=== PATIENT | female | born 1960 | race Two or more races ===

== ENCOUNTER → 2016-09-10 | Outpatient (CLI) | payer BC ==
--- NOTE | 2016-09-10 12:06 | RAD ---
Chest, 2 views, 09/10/2016: History: Right periscapular pain No previous chest radiographs are available at this time for comparison purposes. There is a density in the posterior aspect of the left chest suggesting focal diaphragmatic eventration. The heart size and pulmonary vascularity are normal. No pulmonary infiltrates are seen. No definite pleural fluid is seen. IMPRESSION: 1. Partial eventration of the left hemidiaphragm. 2. No acute cardiopulmonary abnormality is detected.
== END | disposition home or self-care (01) ==
LOC: DXRADRC 08:17
PROVIDERS: ATTEND Physician Assistant Medical
DX: N64.4 Mastodynia (principal); Q79.1 Other congenital malformations of diaphragm
CPT/HCPCS: 71020

== ENCOUNTER → 2016-12-22 | Outpatient (CLI) | payer BC ==
--- NOTE | 2016-12-22 09:57 | RAD ---
Examination: 2 views of the chest History: History of chest congestion Comparison: 09/10/2016 Findings: The cardiomediastinal silhouette grossly appears unremarkable. Minimal prominent appearing bilateral interstitial lung markings could be chronic interstitial changes or minimal interstitial infiltrates. Mild elevation of left hemidiaphragm unchanged. Moderate degenerative changes thoracic spine. Impression: Minimal prominent appearing bilateral perihilar bronchovascular markings could be chronic interstitial changes or minimal interstitial infiltrates.
== END | disposition home or self-care (01) ==
LOC: DXRADRC 08:20
PROVIDERS: ATTEND Physician Assistant Medical
DX: R09.89 Other specified symptoms and signs involving the circulatory and respiratory systems (principal); R50.9 Fever, unspecified; J98.6 Disorders of diaphragm; M47.894 Other spondylosis, thoracic region
CPT/HCPCS: 71020

== ENCOUNTER → 2017-01-02 | Outpatient (CLI) | payer BC ==
--- NOTE | 2017-01-02 16:26 | RAD ---
CHEST PA LATERAL Clinical Indication: CHEST CONGESTION W NON PROD COUGH X 2 WKS Comparison: Chest radiograph dated 12/22/2016. Findings: Unchanged eventration of the left hemidiaphragm. No focal consolidation. Normal pulmonary vasculature. No pleural effusion or pneumothorax. The cardiomediastinal silhouette and great vessels are stable. No acute osseous abnormality. Mild multilevel degenerative changes of the visualized spine. IMPRESSION: No acute cardiopulmonary process.
== END | disposition home or self-care (01) ==
LOC: DXRADRC 14:00
PROVIDERS: ATTEND Physician Assistant Medical
DX: R09.89 Other specified symptoms and signs involving the circulatory and respiratory systems (principal); R05 Cough; Q79.1 Other congenital malformations of diaphragm; M47.899 Other spondylosis, site unspecified
CPT/HCPCS: 71020

== ENCOUNTER → 2020-01-20 | Outpatient (CLI) | payer BC ==
--- NOTE | 2020-01-23 17:09 | RAD ---
BILATERAL SCREENING MAMMOGRAM, 3-D History: Routine screening. Comparison: 01/21/2019, 01/21/2018, 01/09/2017. Technique: MLO and CC digital tomosynthesis (3D) images obtained. Radiologist reviewed these images on dedicated workstation. Findings: Breast Tissue Density A : The breasts are almost entirely fatty. There are no dominant masses, suspicious microcalcifications, or architectural distortion. Biopsy clip marker involves the left breast. IMPRESSION: No mammographic evidence of malignancy. Recommend routine screening. BI-RADS category 1: Negative. The images were reviewed with computer-aided detection. Patient information is entered into reminder system with a target due date for the next screening mammogram. Mammography is the most sensitive method for finding small breast cancers, but it does not detect them all and is not a substitute for careful clinical examination. A negative mammogram does not negate a clinically suspicious finding and should not result in delay in biopsying a clinically suspicious abnormality. "Our facility is accredited by the [employer] Mammography Program." Electronically signed by: Omari Aarna MD (01/23/2020 5:06 PM) [email or web address]
== END ==
LOC: MAMMO 13:02
PROVIDERS: ATTEND Physician Assistant Medical
DX: Z12.31 Encounter for screening mammogram for malignant neoplasm of breast (principal)
CPT/HCPCS: 77063; 77067

== ENCOUNTER → 2020-04-30 | Outpatient (CLI) | payer BC ==
[~2020-04-30] MED LIST: IOHEXOL 240 MG/ML 50ML VIAL. PO ONE; IOHEXOL 300 MG/ML 75 ML VIAL. IV ONE
--- NOTE | 2020-04-30 12:57 | RAD ---
EXAM: CT Abdomen and Pelvis with IV contrast CLINICAL HISTORY: Reason: PAIN IN UPPER ABDOMEN / Spl. Instructions: / History: . COMPARISON: none TECHNIQUE: Helical CT of the abdomen and pelvis was performed following the administration of intrave nous contrast. Axial, coronal and sagittal reformatted images were generated. PQRS compliance statement - One or more of the following individualized dose reduction techniques wer e utilized for this study: 1. Automated exposure control 2. Adjustment of the mA and/or kV according to patient size 3. Use of iterative reconstruction technique FINDINGS: Lower Chest: Lung bases are clear. Moderate hiatal hernia. Abdomen and Pelvis: Hepatic hypoattenuation, likely fatty liver. Liver measures 18.4 cm in length. Calcified gallstones a re seen within the gallbladder. Pancreas, spleen, adrenal glands are unremarkable. 1.5 cm right adren al nodule is seen, indeterminate measuring 50 Hounsfield units. Multiple parapelvic cysts are seen within the left kidney. No focal renal lesion. No hydronephrosis. No hydroureter. Appendix is not seen. No significant pericecal inflammatory change. Moderate colonic stool content is seen. No bowel obstruction. Is seen. No abdominal or pelvic ascites. No abdominal or pelvic lymphade nopathy. Bones: No aggressive osseous lesion is seen. L4-5 and L5-S1 disc height loss IMPRESSION: 1. Hepatic hypoattenuation, likely fatty liver. Liver is mildly enlarged. 2. Cholelithiasis without CT evidence for acute cholecystitis. 3. Moderate hiatal hernia. 4. Appendix is not seen. No significant pericecal inflammatory change. 5. Numerous parapelvic cysts are seen within the left kidney. No hydronephrosis or hydroureter. Electronically signed by: Junior Wiley MD (04/30/2020 12:54 PM) [id number]
== END ==
LOC: URGCARE 08:06
PROVIDERS: ATTEND Nurse Practitioner Family
DX: K80.20 Calculus of gallbladder without cholecystitis without obstruction (principal); K44.9 Diaphragmatic hernia without obstruction or gangrene; N28.1 Cyst of kidney, acquired
CPT/HCPCS: 74177; Q9967

== ENCOUNTER → 2021-01-28 | Outpatient (CLI) | payer BC ==
--- NOTE | 2021-01-28 09:40 | RAD ---
INDICATION : Routine Screening. COMPARISON: Priors including December 2018 TECHNIQUE: Standard mammogram screening views of the bilateral breasts were obtained with 3D tomosynt hesis. CAD was utilized. FINDINGS: The breasts are fatty density. No definite suspicious mass. IMPRESSION: BI-RADS Category 2: Benign findings. The patient was placed into the recall system with a suggested recall date for follow up imaging. Mammography is the most sensitive method for finding small breast cancers, but it does not detect the m all and is not a substitute for careful clinical examination. A negative mammogram does not negate a clinically suspicious finding and should not result in delay in biopsying a clinically suspicious abnormality. Electronically signed by: Sree Devries MD (01/28/2021 9:37 AM) [id number]
== END ==
LOC: MAMMO 07:43
PROVIDERS: ATTEND Physician Assistant Medical
DX: Z12.31 Encounter for screening mammogram for malignant neoplasm of breast (principal)
CPT/HCPCS: 77063; 77067

== ENCOUNTER → 2021-02-20 | Outpatient (CLI) | payer BC ==
--- NOTE | 2021-02-20 09:51 | RAD ---
EXAM: Abdomen, 2 views. HISTORY: Pain. COMPARISON: CT dated 04/30/2020. FINDINGS: Frontal upright and supine views of the abdomen are obtained. There are nondistended air-fi lled loops of bowel within the abdomen. There is no transition point to suggest obstruction. There is a small amount of gas within the rectum. There is no free air. There are cholecystectomy clips. IMPRESSION: Nonobstructive bowel gas pattern. Electronically signed by: Yenni Pate MD (02/20/2021 9:48 AM) [id number]
== END ==
LOC: RAD 09:30
PROVIDERS: ATTEND Physician Assistant Medical
DX: R10.11 Right upper quadrant pain (principal); Z90.49 Acquired absence of other specified parts of digestive tract
CPT/HCPCS: 74019

== ENCOUNTER → 2021-03-01 | Outpatient (CLI) | payer BC ==
--- NOTE | 2021-03-01 14:13 | RAD ---
EXAM: ULTRASOUND ABDOMEN COMPLETE CLINICAL HISTORY: Reason: RUQ PAIN / Spl. Instructions: / History: COMPARISON: None available. TECHNIQUE: Ultrasound of the upper abdomen was performed. FINDINGS: Pancreas is obscured by overlying bowel gas. The liver measures 17.1 cm in length in the right mid cl avicular line. Increased hepatic echogenicity relative to the right kidney consistent with hepatic s teatosis. There are no focal liver lesions. Flow seen within the portal veins. There has been a cholecystectomy. The common bile duct measures 0.6 cm. The spleen is not visualized, possibly obscured by overlying structures. The right kidney measures 10.3 cm in bipolar length. Normal renal cortical echotexture and thickness. No focal renal lesion, hydronephrosis or shadowing renal calculus. The left kidney measures 11.1 cm in bipolar length. The left kidney is essentially obscured by overly ing structures Visualized portions of the abdominal aorta and inferior vena cava are unremarkable although the predo minantly obscured by overlying bowel gas.. There is no free fluid in the upper abdomen. IMPRESSION: 1. Examination is limited by prominent overlying structures and limited sonographic penetration. 2. Increased echogenicity of the liver, fatty liver. 3. There has been a cholecystectomy. Electronically signed by: Junior Wiley MD (03/01/2021 2:10 PM) [email or web address]
== END ==
LOC: US 08:17
PROVIDERS: ATTEND Physician Assistant Medical
DX: K76.0 Fatty (change of) liver, not elsewhere classified (principal); R10.11 Right upper quadrant pain
CPT/HCPCS: 76700

== ENCOUNTER → 2021-07-09 | Outpatient (CLI) | payer BC ==
--- NOTE | 2021-07-09 10:38 | RAD ---
INDICATION: Reason: ABDOMINAL PAIN, CHOLECYSTECOMY LAST YEAR. OMNI 300 75 MG / Spl. Instructions: / History: COMPARISON: April 2020 and February 2021 TECHNIQUE: Axial CT images were obtained through the abdomen and pelvis with intravenous contrast. One or more of the following individualized dose reduction techniques were utilized for this examinat ion: 1. Automated exposure control; 2. Adjustment of the mA and/or kV according to patient size; 3 . Use of iterative reconstruction technique. FINDINGS: There is again moderate hiatal hernia. There is prominent fat at the left chest base as well as eleva tion of the left hemidiaphragm with left-sided diaphragmatic defect which may be the source of the pr ominent fat in the area. Vascular: Scattered calcific atherosclerosis. Small fat-containing inguinal hernias. Hepatobiliary: Postcholecystectomy changes. Liver is borderline low density. Nonspecific but can be f rom mild fatty infiltration. Pancreas: No peripancreatic edema. Spleen: Lobulated appearance of the spleen. Renal/Bladder: Repeat demonstration of dilatation of the left renal collecting system versus peripelv ic cyst formation. There are some low-density regions within the left kidney which could be either se condary to prominent low density within the mid to lower low density lesions which are not well guru cterized on this exam. Urinary bladder has minimal urine within it at time of exam. Right adrenal nod ule is again seen measuring approximately 15 mm. An indeterminate appearance. Gastrointestinal: Dominant follicle or small cyst right ovary is again seen. There is mild heterogene ity of the myometrium which causes such as fibroid within the differential. Colonic diverticulosis. M oderate stool within the colon. No periappendiceal inflammatory changes. No dilated loops of bowel abdi ggest obstruction. Degenerative changes of the spine. IMPRESSION: * No evidence of bowel obstruction or appendicitis. * Elevation of the left hemidiaphragm with a diaphragmatic defect with mesenteric fat extending into the left lower chest. There is also a hiatal hernia again seen. * Right adrenal nodule with indeterminate appearance. * Redemonstration prominent low density at the left renal pelvis which could be secondary to dilatat ion of the collecting system and/or peripelvic cyst formation. There is also some low-density foci in the left renal cortex which could be from some low-density left renal lesions which are not well syeda racterized on this exam. Electronically signed by: Sree Devries MD (07/09/2021 10:35 AM) [id number]
== END ==
LOC: CT 08:18
PROVIDERS: ATTEND Internal Medicine Gastroenterology
DX: K44.9 Diaphragmatic hernia without obstruction or gangrene (principal); K40.90 Unilateral inguinal hernia, without obstruction or gangrene, not specified as recurrent; M47.814 Spondylosis without myelopathy or radiculopathy, thoracic region; K57.30 Diverticulosis of large intestine without perforation or abscess without bleeding; E27.9 Disorder of adrenal gland, unspecified
CPT/HCPCS: 74177; Q9966